=== PATIENT | female | born 1935 | race Caucasian/White ===

== ENCOUNTER 2016-05-17 09:24 | Emergency (ER) | payer OTHER ==
--- NOTE | 2016-05-17 12:27 | ED NURSING NOTES ---
Clinical Report - Nurses [facility] [address] [place] [address] 05/17/2016 9:27 Patient: SALOME CHANDLER TRIAGE Acuity: LEVEL 4. Chief Complaint: RIGHT UPPER EXTREMITY PAIN and SWELLING. Alert. No acute distress. SEPSIS SCREEN: Sepsis Screen. Negative (no infection suspected/documented). MANUEL COMA SCORE: [place] Coma Scale: 15- eyes open spontaneously (4); best verbal response- oriented x 4 (5); best motor response- obeys commands (6). --09:45 Julia Hernandez R.N. 09:37 05/17/16. BP: 118/84. HR: 107. RR: 16. O2 saturation: 98% on room air. Temp: 98.2 F (oral). Pain level now: 02/08. --09:45 Julia Hernandez R.N. Weight: 78 kg stated. Height/Length: 63 inches Per Patient. BMI: 30.5. --09:38 Julia Hernandez R.N. Medication/allergy information source: the patient. --09:45 Julia Hernandez R.N. Allergies LIsinopril. --09:40 Julia Hernandez R.N. Codeine. --09:40 Julia Hernandez R.N. Ilosone. --09:41 Julia Hernandez R.N. History Arrived by private vehicle. Historian: patient. Unaccompanied. Primary physician (Haroldo). An injury may have occurred. This occurred (2 days ago). Provoking / relieving factors: worsened by movement of wrist; relieved by not moving. Treatment NURSE CHEMICAL DEPENDENCY: Took Tylenol. PAST MEDICAL HX: The patient has had a hysterectomy. SOCIAL HX: Former smoker, end date 1970. No alcohol use or drug use. NUTRITIONAL RISK ASSESSMENT: The nutritional risk assessment revealed no deficiencies. FUNCTIONAL ASSESSMENT: Functional assessment: no impairments noted. LEARNING NEEDS ASSESSMENT: The learning needs assessment revealed no barriers. FALL RISK ASSESSMENT: Fall risk assessment completed. Risk factors identified include patient age greater than 65 years. SKIN INTEGRITY ASSESSMENT: Skin integrity risk assessment completed. No skin integrity risk identified. --09:45 Julia Hernandez R.N. PROBLEMS: Asthma. Arthritis. Hypertension. Hypercholesterolemia. --09:44 Julia Hernandez R.N. ADDITIONAL SURGERIES: Adenoidectomy. Hysterectomy. Tonsillectomy. --09:44 Julia Hernandez R.N. Assessment GENERAL / NEURO / PSYCH: Alert. Oriented X 4. Appears in no acute distress. Patient appears calm and cooperative. RESPIRATORY: Respirations not labored. CVS: Capillary refill less than 2 seconds. GI / : Abdomen nontender. SKIN: Mucous membranes are pink. Skin is warm and dry. --09:45 Julia Hernandez R.N. Interventions ID band on patient. To treatment room. --09:45 Julia Hernandez R.N. PHYSICAL ASSESSMENT Ambulatory to room. GENERAL / NEURO / PSYCH: Oriented X 4. Alert. Appears in no acute distress. EXTREMITIES: Neuro-vascular status intact to the extremity. Right wrist: tenderness, swelling and erythema. SKIN: Skin intact. Skin is warm and dry. --09:46 Julia Hernandez R.N. NURSING PROGRESS NOTES Two patient identifiers checked. Call light placed in reach. Side rails up x 2. Bed placed in lowest position. Brakes of bed on. Patient ready for evaluation- chart flagged and ED physician notified. --09:46 Julia Hernandez R.N. DISPOSITION / DISCHARGE 12:45 05/17/16. BP: 134/84 (regular adult cuff) taken on the left arm, via an automated monitor, while sitting. RN notified. HR: 96. RR: 16. O2 saturation: 99%. Temp: 99.1 F. Pain level now: 9/10. Patient is conversant. --12:49 Virginie Pruitt Departure time: 1245 May 17 2016. Condition at departure: improved and stable. No learning barriers present. Reviewed medication(s). Prescription(s) given to the patient. The patient was discharged by the physician. She was discharged home. She left the Emergency Department ambulatory and via private vehicle. Patient driving. --19:57 Julia Hernandez R.N. Locked/Released at 05/17/2016 19:58 by Julia Hernandez R.N.
--- NOTE | 2016-05-17 12:27 | ED NURSING NOTES ---
Clinical Report - Nurses [facility] [address] [place] [address] 05/17/2016 9:27 Patient: SALOME CHANDLER TRIAGE Acuity: LEVEL 4. Chief Complaint: RIGHT UPPER EXTREMITY PAIN and SWELLING. Alert. No acute distress. SEPSIS SCREEN: Sepsis Screen. Negative (no infection suspected/documented). MANUEL COMA SCORE: [place] Coma Scale: 15- eyes open spontaneously (4); best verbal response- oriented x 4 (5); best motor response- obeys commands (6). --09:45 Julia Hernandez R.N. 09:37 05/17/16. BP: 118/84. HR: 107. RR: 16. O2 saturation: 98% on room air. Temp: 98.2 F (oral). Pain level now: 02/08. --09:45 Julia Hernandez R.N. Weight: 78 kg stated. Height/Length: 63 inches Per Patient. BMI: 30.5. --09:38 Julia Hernandez R.N. Medication/allergy information source: the patient. --09:45 Julia Hernandez R.N. Allergies LIsinopril. --09:40 Julia Hernandez R.N. Codeine. --09:40 Julia Hernandez R.N. Ilosone. --09:41 Julia Hernandez R.N. History Arrived by private vehicle. Historian: patient. Unaccompanied. Primary physician (Haroldo). An injury may have occurred. This occurred (2 days ago). Provoking / relieving factors: worsened by movement of wrist; relieved by not moving. 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 PAST MEDICAL HX: The patient has had a hysterectomy. SOCIAL HX: Former smoker, end date 1970. No alcohol use or drug use. NUTRITIONAL RISK ASSESSMENT: The nutritional risk assessment revealed no deficiencies. FUNCTIONAL ASSESSMENT: Functional assessment: no impairments noted. LEARNING NEEDS ASSESSMENT: The learning needs assessment revealed no barriers. FALL RISK ASSESSMENT: Fall risk assessment completed. Risk factors identified include patient age greater than 65 years. SKIN INTEGRITY ASSESSMENT: Skin integrity risk assessment completed. No skin integrity risk identified. --09:45 Julia Hernandez R.N. PROBLEMS: Asthma. Arthritis. Hypertension. Hypercholesterolemia. --09:44 Julia Hernandez R.N. ADDITIONAL SURGERIES: Adenoidectomy. Hysterectomy. Tonsillectomy. --09:44 Julia Hernandez R.N. Assessment GENERAL / NEURO / PSYCH: Alert. Oriented X 4. Appears in no acute distress. Patient appears calm and cooperative. RESPIRATORY: Respirations not labored. CVS: Capillary refill less than 2 seconds. GI / : Abdomen nontender. SKIN: Mucous membranes are pink. Skin is warm and dry. --09:45 Julia Hernandez R.N. Interventions ID band on patient. To treatment room. --09:45 Julia Hernandez R.N. PHYSICAL ASSESSMENT Ambulatory to room. GENERAL / NEURO / PSYCH: Oriented X 4. Alert. Appears in no acute distress. EXTREMITIES: Neuro-vascular status intact to the extremity. Right wrist: tenderness, swelling and erythema. SKIN: Skin intact. Skin is warm and dry. --09:46 Julia Hernandez R.N. NURSING PROGRESS NOTES Two patient identifiers checked. Call light placed in reach. Side rails up x 2. Bed placed in lowest position. Brakes of bed on. Patient ready for evaluation- chart flagged and ED physician notified. --09:46 Julia Hernandez R.N. DISPOSITION / DISCHARGE 12:45 05/17/16. BP: 134/84 (regular adult cuff) taken on the left arm, via an automated monitor, while sitting. RN notified. HR: 96. RR: 16. O2 saturation: 99%. Temp: 99.1 F. Pain level now: 9/10. Patient is conversant. --12:49 Virginie Pruitt Departure time: 1245 May 17 2016. Condition at departure: improved and stable. No learning barriers present. Reviewed medication(s). Prescription(s) given to the patient. The patient was discharged by the physician. She was discharged home. She left the Emergency Department ambulatory and via private vehicle. Patient driving. --19:57 Julia Hernandez R.N. Locked/Released at 05/17/2016 19:58 by Julia Hernandez R.N.
--- NOTE | 2016-05-17 12:27 | ED CLINICAL REPORT ---
Clinical Report - Physicians/Mid Levels [facility] [address] [place] [address] 05/17/2016 9:27 Patient: SALOME CHANDLER Time Seen: 10:20. Arrived- By private vehicle. Historian- patient. HISTORY OF PRESENT ILLNESS Chief Complaint: UPPER EXTREMITY PAIN and SWELLING. Severity is described as being moderate in degree. The quality is noted to be "pain". This started today and is still present. It has been constant. Symptoms located in the area of the right wrist. No chest pain, difficulty breathing, sensory loss or motor loss. She has had redness and swelling. Patient denies an injury. Similar symptoms previously: ( Ms Chandler had similar but milder symptoms in her L wrist several days ago). REVIEW OF SYSTEMS No fever, chills, abdominal pain, nausea or vomiting. No chest pain or difficulty breathing. PAST HISTORY PCP: PROBLEMS: Asthma. Arthritis. Hypertension. Hypercholesterolemia. ADDITIONAL SURGERIES: Adenoidectomy. Hysterectomy. Tonsillectomy. ADDITIONAL NOTES The nursing notes have been reviewed. PHYSICAL EXAM Vital Signs: 05/17/2016 12:45 BP: 134/84. HR: 96. RR: 16. O2 saturation: 99%. Temp: 99.1 F. Pain level now: 9. 05/17/2016 09:37 BP: 118/84. HR: 107. RR: 16. O2 saturation: 98%. Temp: 98.2 F. Pain level now: 02/08. Appearance: Alert. No acute distress. Patient in mild distress. Extremities: Right wrist: mild erythema and swelling and moderate tenderness. Neurovascular intact distally. Extremities otherwise negative. LABS, X-RAYS, AND EKG Rt Wrist X-ray: (No trauma. Lost of arthritis). Note - Tests: (PROCEDURE: XR WRIST MIN 3 VIEWS - RIGHT INDICATION: PAIN TECHNIQUE: Five view of the right wrist. COMPARISON: None. FINDINGS: There is severe osteoarthritis involving the first carpal metacarpal joint with fragmentation of the trapezium and subluxation. IMPRESSION: 1. Severe osteoarthritis first carpal metacarpal joint. Dictated by: MD Yoel CARRILLO: GILL;05/17/16 1310 <Electronically signed by MARY ARMSTRONG MD in OV> 05/17/16 1311). PROGRESS AND PROCEDURES Splint Application: Radial gutter splint applied to right wrist. Splint applied by tech. Course of Care: The redness and tenderness are not acute enough of infectious arthritis, The presence of similar milder L sided swelling is against gouty arthritis. It looks more like severe osteoarthritis not rheumatoid arthritis. Disposition: Discharged. Condition: stable. CLINICAL IMPRESSION Acute monoarthritis of the right wrist due to osteoarthritis. INSTRUCTIONS (iBUPROFEN 600 MG EVERY 6 HOURS FOR 4 DAYS IMMEDIATE RECHECK FOR INCREASING PAIN OR SWELLING). Prescription Medications: Hydrocodone/APAP 5mg / 325mg: take 1 orally every 4 hours as needed for pain. Dispense fifteen (15). No refill. Ibuprofen 600mg tablets: take 1 tablet orally every 8 hours as needed for pain. Dispense thirty (30). No refills. Follow-up: Follow up with your doctor in three days even if well. Reason for referral: RECHECK WRIST Understanding of the discharge instructions verbalized by patient. (Electronically signed by Macario Hoang MD 05/18/2016 12:44)
--- NOTE | 2016-05-17 12:27 | ED ORDER SUMMARY ---
..... Patient: SALOME CHANDLER OrderSheet [facility] VisitID: [id number] [address] [place] [address] 80y, F Registration Date/Time: 05/17/2016 ORDER SHEET Weight: 78.0 kg (stated) Allergies: LIsinopril, Codeine, Ilosone GENERAL ORDERS: Wrist 3 or 4V Right Urgent (10:21 05/17/2016 Gaurav ROSALES) (Ack 10:45 LTapper) (11:32 MWinterer R.N.) Splint (UE) (Right) (Radial Gutter) (12:24 05/17/2016 Gaurav ROSALES) (Ack 12:42 MWinterer R.N.) (19:57 MWinterer R.N.) MEDICATION ORDERS: IV FLUIDS: ORDER SHEET NOTES: [Electronically signed by Julia Hernandez R.N. (19:58 05/17/2016)] [Electronically signed by Macario Hoang MD (12:44 05/18/2016)] [Electronically locked/signed by Julia Hernandez R.N. (19:58 05/17/2016)]
--- NOTE | 2016-05-17 12:27 | ED CLINICAL REPORT ---
Clinical Report - Physicians/Mid Levels [facility] [address] [place] [address] 05/17/2016 9:27 Patient: SALOME CHANDLER Time Seen: 10:20. Arrived- By private vehicle. Historian- patient. HISTORY OF PRESENT ILLNESS Chief Complaint: UPPER EXTREMITY PAIN and SWELLING. Severity is described as being moderate in degree. The quality is noted to be "pain". This started today and is still present. It has been constant. Symptoms located in the area of the right wrist. No chest pain, difficulty breathing, sensory loss or motor loss. She has had redness and swelling. Patient denies an injury. Similar symptoms previously: ( Ms Chandler had similar but milder symptoms in her L wrist several days ago). REVIEW OF SYSTEMS No fever, chills, abdominal pain, nausea or vomiting. No chest pain or difficulty breathing. PAST HISTORY PCP: PROBLEMS: Asthma. Arthritis. Hypertension. Hypercholesterolemia. ADDITIONAL SURGERIES: Adenoidectomy. Hysterectomy. Tonsillectomy. ADDITIONAL NOTES The nursing notes have been reviewed. PHYSICAL EXAM Vital Signs: 05/17/2016 12:45 BP: 134/84. HR: 96. RR: 16. O2 saturation: 99%. Temp: 99.1 F. Pain level now: 9. 05/17/2016 09:37 BP: 118/84. HR: 107. RR: 16. O2 saturation: 98%. Temp: 98.2 F. Pain level now: 02/08. Appearance: Alert. No acute distress. Patient in mild distress. Extremities: Right wrist: mild erythema and swelling and moderate tenderness. Neurovascular intact distally. Extremities otherwise negative. LABS, X-RAYS, AND EKG Rt Wrist X-ray: (No trauma. Lost of arthritis). Note - Tests: (PROCEDURE: XR WRIST MIN 3 VIEWS - RIGHT INDICATION: PAIN TECHNIQUE: Five view of the right wrist. COMPARISON: None. FINDINGS: There is severe osteoarthritis involving the first carpal metacarpal joint with fragmentation of the trapezium and subluxation. IMPRESSION: 1. Severe osteoarthritis first carpal metacarpal joint. Dictated by: MD Yoel CARRILLO: GILL;05/17/16 1310 <Electronically signed by MARY ARMSTRONG MD in OV> 05/17/16 1311). PROGRESS AND PROCEDURES Splint Application: Radial gutter splint applied to right wrist. Splint applied by tech. Course of Care: The redness and tenderness are not acute enough of infectious arthritis, The presence of similar milder L sided swelling is against gouty arthritis. It looks more like severe osteoarthritis not rheumatoid arthritis. Disposition: Discharged. Condition: stable. CLINICAL IMPRESSION Acute monoarthritis of the right wrist due to osteoarthritis. INSTRUCTIONS (iBUPROFEN 600 MG EVERY 6 HOURS FOR 4 DAYS IMMEDIATE RECHECK FOR INCREASING PAIN OR SWELLING). Prescription Medications: Hydrocodone/APAP 5mg / 325mg: take 1 orally every 4 hours as needed for pain. Dispense fifteen (15). No refill. Ibuprofen 600mg tablets: take 1 tablet orally every 8 hours as needed for pain. Dispense thirty (30). No refills. Follow-up: Follow up with your doctor in three days even if well. Reason for referral: RECHECK WRIST Understanding of the discharge instructions verbalized by patient. (Electronically signed by Macario Hoang MD 05/18/2016 12:44)
--- NOTE | 2016-05-17 12:27 | ED ORDER SUMMARY ---
..... Patient: SALOME CHANDLER OrderSheet [facility] VisitID: [id number] [address] [place] [address] 80y, F Registration Date/Time: 05/17/2016 ORDER SHEET Weight: 78.0 kg (stated) Allergies: LIsinopril, Codeine, Ilosone GENERAL ORDERS: Wrist 3 or 4V Right Urgent (10:21 05/17/2016 Gaurav ROSALES) (Ack 10:45 LTapper) (11:32 MWinterer R.N.) Splint (UE) (Right) (Radial Gutter) (12:24 05/17/2016 Gaurav ROSALES) (Ack 12:42 MWinterer R.N.) (19:57 MWinterer R.N.) MEDICATION ORDERS: IV FLUIDS: ORDER SHEET NOTES: [Electronically signed by Julia Hernandez R.N. (19:58 05/17/2016)] [Electronically signed by Macario Hoang MD (12:44 05/18/2016)] [Electronically locked/signed by Julia Hernandez R.N. (19:58 05/17/2016)]
--- NOTE | 2016-05-17 13:11 | DIAGNOSTIC IMAGING REPORT ---
PROCEDURE: XR WRIST MIN 3 VIEWS - RIGHT INDICATION: PAIN TECHNIQUE: Five view of the right wrist. COMPARISON: None. FINDINGS: There is severe osteoarthritis involving the first carpal metacarpal joint with fragmentation of the trapezium and subluxation. IMPRESSION: 1. Severe osteoarthritis first carpal metacarpal joint.
--- NOTE | 2016-05-18 12:44 | ED MED RECONCILIATION SUMMARY ---
Patient: SALOME CHANDLER Medication Reconciliation Report [facility] VisitID: [id number] [address] [place] [address] 80y, F Registration Date/Time: 05/17/2016 Weight: 78.0 kg Height/Length: 63 in. BMI: 30.5 ALLERGIES: Codeine, Ilosone, LIsinopril The patient's Home Medications are listed below: Not obtained. The source(s) of the original Home Medication information: patient The following Medications were given to the patient in the Emergency Department: None. The following Medications were prescribed to the patient: Hydrocodone/APAP 5mg / 325mg: take 1 orally every 4 hours as needed for pain. Dispense fifteen (15). No refill. -- Macario Hoang MD Ibuprofen 600mg tablets: take 1 tablet orally every 8 hours as needed for pain. Dispense thirty (30). No refills. -- Macario Hoang MD
--- NOTE | 2016-05-18 12:44 | ED MAR SUMMARY ---
..... Medication Administration Record [facility] [address] [place] [place], [place] [id number] Patient: SALOME CHANDLER Selena Visit ID: [id number] 80y, F Weight: 78.0 kg Height/Length: 63 in BMI: 30.5 ALLERGIES: Ilosone, Codeine, LIsinopril
--- NOTE | 2016-05-18 12:44 | ED DISCHARGE INSTRUCTIONS ---
Patient: SALOME CHANDLER General Instructions [facility] VisitID: [id number] [place] [address] 80y, F Registration Date/Time: 05/17/2016 Acute monoarthritis of the right wrist due to osteoarthritis. INSTRUCTIONS (iBUPROFEN 600 MG EVERY 6 HOURS FOR 4 DAYS IMMEDIATE RECHECK FOR INCREASING PAIN OR SWELLING). Prescription Medications: Hydrocodone/APAP 5mg / 325mg: take 1 orally every 4 hours as needed for pain. Dispense fifteen (15). No refill. Ibuprofen 600mg tablets: take 1 tablet orally every 8 hours as needed for pain. Dispense thirty (30). No refills. Follow-up: Follow up with your doctor in three days even if well. Reason for referral: RECHECK WRIST Understanding of the discharge instructions verbalized by patient. ADDITIONAL INFORMATION Osteoarthritis Osteoarthritis (also called Degenerative Joint Disease) is the most common form of arthritis in adults over 50. It is not the same as Rheumatoid Arthritis. The exact cause is not known but may be related to excess wear and tear on the joint over a long period of time. Prior injury to that joint, or repeated stress on a joint can also cause this type of arthritis. Osteoarthritis most often affects the hands, knees, spine and hips (in that order). The most common symptoms are joint stiffness, pain and swelling. Home Care: When a joint is more sore than usual, rest that joint for a day or two. Heat is very helpful. This can be provided by taking hot baths, applying a heating pad for up to 30 minutes at a time. Because symptoms are usually worse in the morning, many patients like to take a hot bath just after awakening to relax the muscle and soothe the joints. Exercise is the most important part of home treatment for osteoarthritis. This prevents the muscles and ligaments around the joint from becoming weak and helps maintain the full range of joint motion. This limits further damage to the joint. If you are overweight, this puts a lot of extra strain on weight-bearing joints of the lower back, hips, knees, feet and ankles. Losing weight will improve your arthritis symptoms in these joints. Talk to your doctor about a safe and effective weight loss program for yourself. Anti-inflammatory medicine such as ibuprofen (Advil, Motrin) or naproxen (Aleve) is often used to treat this condition. If this alone is not helping, your doctor may prescribe a stronger medicine. If narcotic pain medicines have been prescribed, they should be used in addition to anti-inflammatory drugs and only for severe pain. Follow Up with your doctor as advised by our staff. Get Prompt Medical Attention if any of the following occur: Redness or swelling of a painful joint Fever of 100.4F (38C) or higher, or as directed by your healthcare provider Worsening joint pain Hydrocodone Bitartrate, Acetaminophen Oral tablet What is this medicine? ACETAMINOPHEN; HYDROCODONE (a set a JENIFER vignesh fen; marco droe KOE done) is a pain reliever. It is used to treat mild to moderate pain. How should I use this medicine? Take this medicine by mouth. Swallow it with a full glass of water. Follow the directions on the prescription label. If the medicine upsets your stomach, take the medicine with food or milk. Do not take more than you are told to take. Talk to your conveyor installer regarding the use of this medicine in children. This medicine is not approved for use in children. What side effects may I notice from receiving this medicine? Side effects that you should report to your doctor or health direct care supervisor as soon as possible: allergic reactions like skin rash, itching or hives, swelling of the face, lips, or tongue breathing problems confusion feeling faint or lightheaded, falls stomach pain yellowing of the eyes or skin Side effects that usually do not require medical attention (report to your doctor or health direct care supervisor if they continue or are bothersome): nausea, vomiting stomach upset What may interact with this medicine? alcohol antihistamines isoniazid medicines for depression, anxiety, or psychotic disturbances medicines for sleep muscle relaxants naltrexone narcotic medicines (opiates) for pain phenobarbital ritonavir tramadol What if I miss a dose? If you miss a dose, take it as soon as you can. If it is almost time for your next dose, take only that dose. Do not take double or extra doses. Where should I keep my medicine? Keep out of the reach of children. This medicine can be abused. Keep your medicine in a safe place to protect it from theft. Do not share this medicine with anyone. Selling or giving away this medicine is dangerous and against the law. Store at room temperature between 15 and 30 degrees C (59 and 86 degrees F). Protect from light. Keep container tightly closed. Throw away any unused medicine after the expiration date. Discard unused medicine and used packaging carefully. Pets and children can be harmed if they find used or lost packages. What should I tell my health care provider before I take this medicine? They need to know if you have any of these conditions: brain tumor Crohn's disease, inflammatory bowel disease, or ulcerative colitis drink more than 3 alcohol-containing drinks per day drug abuse or addiction head injury heart or circulation problems kidney disease or problems going to the bathroom liver disease lung disease, asthma, or breathing problems an unusual or allergic reaction to acetaminophen, hydrocodone, other opioid analgesics, other medicines, foods, dyes, or preservatives or trying to get breast-feeding What should I watch for while using this medicine? Tell your doctor or health direct care supervisor if your pain does not go away, if it gets worse, or if you have new or a different type of pain. You may develop tolerance to the medicine. Tolerance means that you will need a higher dose of the medicine for pain relief. Tolerance is normal and is expected if you take the medicine for a long time. Do not suddenly stop taking your medicine because you may develop a severe reaction. Your body becomes used to the medicine. This does NOT mean you are addicted. Addiction is a behavior related to getting and using a drug for a non-medical reason. If you have pain, you have a medical reason to take pain medicine. Your doctor will tell you how much medicine to take. If your doctor wants you to stop the medicine, the dose will be slowly lowered over time to avoid any side effects. You may get drowsy or dizzy when you first start taking the medicine or change doses. Do not drive, use machinery, or do anything that may be dangerous until you know how the medicine affects you. Stand or sit up slowly. There are different types of narcotic medicines (opiates) for pain. If you take more than one type at the same time, you may have more side effects. Give your health care provider a list of all medicines you use. Your doctor will tell you how much medicine to take. Do not take more medicine than directed. Call emergency for help if you have problems breathing. The medicine will cause constipation. Try to have a bowel movement at least every 2 to 3 days. If you do not have a bowel movement for 3 days, call your doctor or health direct care supervisor. Too much acetaminophen can be very dangerous. Do not take Tylenol (acetaminophen) or medicines that contain acetaminophen with this medicine. Many non-prescription medicines contain acetaminophen. Always read the labels carefully. You have been given the following additional information: Osteoarthritis Hydrocodone Bitartrate, Acetaminophen Oral tablet (Electronically signed by Macario Hoang MD 05/18/2016 12:44)
--- NOTE | 2016-05-18 12:44 | ED DISCHARGE INSTRUCTIONS ---
Patient: SALOME CHANDLER General Instructions [facility] VisitID: [id number] [place] [address] 80y, F Registration Date/Time: 05/17/2016 Acute monoarthritis of the right wrist due to osteoarthritis. INSTRUCTIONS (iBUPROFEN 600 MG EVERY 6 HOURS FOR 4 DAYS IMMEDIATE RECHECK FOR INCREASING PAIN OR SWELLING). Prescription Medications: Hydrocodone/APAP 5mg / 325mg: take 1 orally every 4 hours as needed for pain. Dispense fifteen (15). No refill. Ibuprofen 600mg tablets: take 1 tablet orally every 8 hours as needed for pain. Dispense thirty (30). No refills. Follow-up: Follow up with your doctor in three days even if well. Reason for referral: RECHECK WRIST Understanding of the discharge instructions verbalized by patient. ADDITIONAL INFORMATION Osteoarthritis Osteoarthritis (also called Degenerative Joint Disease) is the most common form of arthritis in adults over 50. It is not the same as Rheumatoid Arthritis. The exact cause is not known but may be related to excess wear and tear on the joint over a long period of time. Prior injury to that joint, or repeated stress on a joint can also cause this type of arthritis. Osteoarthritis most often affects the hands, knees, spine and hips (in that order). The most common symptoms are joint stiffness, pain and swelling. Home Care: When a joint is more sore than usual, rest that joint for a day or two. Heat is very helpful. This can be provided by taking hot baths, applying a heating pad for up to 30 minutes at a time. Because symptoms are usually worse in the morning, many patients like to take a hot bath just after awakening to relax the muscle and soothe the joints. Exercise is the most important part of home treatment for osteoarthritis. This prevents the muscles and ligaments around the joint from becoming weak and helps maintain the full range of joint motion. This limits further damage to the joint. If you are overweight, this puts a lot of extra strain on weight-bearing joints of the lower back, hips, knees, feet and ankles. Losing weight will improve your arthritis symptoms in these joints. Talk to your doctor about a safe and effective weight loss program for yourself. Anti-inflammatory medicine such as ibuprofen (Advil, Motrin) or naproxen (Aleve) is often used to treat this condition. If this alone is not helping, your doctor may prescribe a stronger medicine. If narcotic pain medicines have been prescribed, they should be used in addition to anti-inflammatory drugs and only for severe pain. Follow Up with your doctor as advised by our staff. Get Prompt Medical Attention if any of the following occur: Redness or swelling of a painful joint Fever of 100.4F (38C) or higher, or as directed by your healthcare provider Worsening joint pain Hydrocodone Bitartrate, Acetaminophen Oral tablet What is this medicine? ACETAMINOPHEN; HYDROCODONE (a set a JENIFER vignesh fen; marco droe KOE done) is a pain reliever. It is used to treat mild to moderate pain. How should I use this medicine? Take this medicine by mouth. Swallow it with a full glass of water. Follow the directions on the prescription label. If the medicine upsets your stomach, take the medicine with food or milk. Do not take more than you are told to take. Talk to your production broaching machine operator regarding the use of this medicine in children. This medicine is not approved for use in children. What side effects may I notice from receiving this medicine? Side effects that you should report to your doctor or health hospice care transitions coordinator as soon as possible: allergic reactions like skin rash, itching or hives, swelling of the face, lips, or tongue breathing problems confusion feeling faint or lightheaded, falls stomach pain yellowing of the eyes or skin Side effects that usually do not require medical attention (report to your doctor or health hospice care transitions coordinator if they continue or are bothersome): nausea, vomiting stomach upset What may interact with this medicine? alcohol antihistamines isoniazid medicines for depression, anxiety, or psychotic disturbances medicines for sleep muscle relaxants naltrexone narcotic medicines (opiates) for pain phenobarbital ritonavir tramadol What if I miss a dose? If you miss a dose, take it as soon as you can. If it is almost time for your next dose, take only that dose. Do not take double or extra doses. Where should I keep my medicine? Keep out of the reach of children. This medicine can be abused. Keep your medicine in a safe place to protect it from theft. Do not share this medicine with anyone. Selling or giving away this medicine is dangerous and against the law. Store at room temperature between 15 and 30 degrees C (59 and 86 degrees F). Protect from light. Keep container tightly closed. Throw away any unused medicine after the expiration date. Discard unused medicine and used packaging carefully. Pets and children can be harmed if they find used or lost packages. What should I tell my health care provider before I take this medicine? They need to know if you have any of these conditions: brain tumor Crohn's disease, inflammatory bowel disease, or ulcerative colitis drink more than 3 alcohol-containing drinks per day drug abuse or addiction head injury heart or circulation problems kidney disease or problems going to the bathroom liver disease lung disease, asthma, or breathing problems an unusual or allergic reaction to acetaminophen, hydrocodone, other opioid analgesics, other medicines, foods, dyes, or preservatives or trying to get breast-feeding What should I watch for while using this medicine? Tell your doctor or health hospice care transitions coordinator if your pain does not go away, if it gets worse, or if you have new or a different type of pain. You may develop tolerance to the medicine. Tolerance means that you will need a higher dose of the medicine for pain relief. Tolerance is normal and is expected if you take the medicine for a long time. Do not suddenly stop taking your medicine because you may develop a severe reaction. Your body becomes used to the medicine. This does NOT mean you are addicted. Addiction is a behavior related to getting and using a drug for a non-medical reason. If you have pain, you have a medical reason to take pain medicine. Your doctor will tell you how much medicine to take. If your doctor wants you to stop the medicine, the dose will be slowly lowered over time to avoid any side effects. You may get drowsy or dizzy when you first start taking the medicine or change doses. Do not drive, use machinery, or do anything that may be dangerous until you know how the medicine affects you. Stand or sit up slowly. There are different types of narcotic medicines (opiates) for pain. If you take more than one type at the same time, you may have more side effects. Give your health care provider a list of all medicines you use. Your doctor will tell you how much medicine to take. Do not take more medicine than directed. Call emergency for help if you have problems breathing. The medicine will cause constipation. Try to have a bowel movement at least every 2 to 3 days. If you do not have a bowel movement for 3 days, call your doctor or health hospice care transitions coordinator. Too much acetaminophen can be very dangerous. Do not take Tylenol (acetaminophen) or medicines that contain acetaminophen with this medicine. Many non-prescription medicines contain acetaminophen. Always read the labels carefully. You have been given the following additional information: Osteoarthritis Hydrocodone Bitartrate, Acetaminophen Oral tablet (Electronically signed by Macario Hoang MD 05/18/2016 12:44)
--- NOTE | 2016-05-18 12:44 | ED MED RECONCILIATION SUMMARY ---
Patient: SALOME CHANDLER Medication Reconciliation Report [facility] VisitID: [id number] [address] [place] [address] 80y, F Registration Date/Time: 05/17/2016 Weight: 78.0 kg Height/Length: 63 in. BMI: 30.5 ALLERGIES: Codeine, Ilosone, LIsinopril The patient's Home Medications are listed below: Not obtained. The source(s) of the original Home Medication information: patient The following Medications were given to the patient in the Emergency Department: None. The following Medications were prescribed to the patient: Hydrocodone/APAP 5mg / 325mg: take 1 orally every 4 hours as needed for pain. Dispense fifteen (15). No refill. -- Macario Hoang MD Ibuprofen 600mg tablets: take 1 tablet orally every 8 hours as needed for pain. Dispense thirty (30). No refills. -- Macario Hoang MD
--- NOTE | 2016-05-18 12:44 | ED MAR SUMMARY ---
..... Medication Administration Record [facility] [address] [place], [place] [id number] Patient: SALOME CHANDLER Selena Visit ID: [id number] 80y, F Weight: 78.0 kg Height/Length: 63 in BMI: 30.5 ALLERGIES: Ilosone, Codeine, LIsinopril
== END 2016-05-17 12:45 | disposition home or self-care (01) ==
LOC: ED SRH 09:24
DX: M19.031 Primary osteoarthritis, right wrist (principal); I10 Essential (primary) hypertension